=== PATIENT | female | born 1950 | race Caucasian/White ===

== ENCOUNTER 2017-08-31 10:26 | Observation (INO) | payer OTHER ==
[2017-08-31] VITALS (7 sets, daily range): BP systolic 146–184; BP diastolic 67–76; PULSE 46–57; RESP 16; TEMP 97.5–97.7; O2SAT 96–99
[2017-08-31] MEDS ORDERED: LOSA100T2 PO ×2 (12:16→16:27)
[2017-08-31] MEDS ORDERED: METF1000 PO (12:16)
[2017-08-31] MEDS ORDERED: GLIM2TAB PO (12:16)
[2017-08-31] MEDS ORDERED: FERR324T8 PO (12:16)
[2017-08-31] MEDS ORDERED: ATOR40TA16 PO (12:16)
[2017-08-31] MEDS ORDERED: FE FCAP2 (12:16)
[2017-08-31] MEDS ORDERED: VITA500012 PO (12:16)
[2017-08-31] MEDS ORDERED: MELO7.5T27 PO (12:16)
[2017-08-31] MEDS ORDERED: ACETAMINOPHEN 500 MG CPLT PO PRN (16:30)
[2017-08-31] MEDS ORDERED: NON-FORMULARY DRUG (Losartan-Hydrochlorothiazide 1 TAB) PO SCH (16:30)
[2017-08-31] MEDS ORDERED: cloNIDine HCL 0.1 MG TAB PO PRN (16:30)
[2017-08-31] MEDS ORDERED: ONDANSETRON ODT 4 MG TAB PO PRN (16:30)
[2017-08-31] MEDS ORDERED: ALPRAZolam 0.25 MG TAB PO PRN (16:30)
[2017-08-31] MEDS ORDERED: RESP: ALBUTEROL 2.5 MG/IPRATROPIUM 0.5 MG NEB (PRN) INH (16:30)
--- NOTE | 2017-08-31 16:35 | HHI.HP ---
HPI Primary Care Physician Non-Staff Chief Complaint Chest pain History of Present Illness This is a 67-year-old female that presents to ED in [place] to be evaluated for chest pain. Patient has history of hypertension, hyperlipidemia, diabetes. States that she was visiting her mother at a snf yesterday when she fell. She landed on her right knee. Otherwise nothing else was bothering her. Denied loss of consciousness. Cannot recall striking her head. Was not feeling dizzy. She really cannot state why she fell. Then later that evening at home approximately 1030, patient developed a discomfort in left chest. States it felt like a very cold sensation. It lasted a couple seconds and then resolved. There was no associated shortness of breath, nausea, or diaphoresis. She took her blood pressure medicine and then went to sleep. She woke back up and stated that her whole body aches. And then a little later she developed the same chest discomfort that she had the evening before also lasting a couple seconds. She decided to go to the hospital. Currently she complains of low back pain and right knee pain. CT scan of the C-spine and brain in [place] revealed nothing acute. X-ray of the right knee revealed nothing acute. We will get x-rays of her low back. Currently denies chest pain. Review of Systems General: Patient denies fevers, chills, and recent travel. HEENT: Patient denies headache, sore throat, difficulty swallowing. Cardiovascular: Has the chest discomfort as mentioned above. Denies sensation of heart beating rapidly or irregularly. No syncope. Denies diaphoresis. Respiratory: Denies shortness of breath or inspirational chest discomfort. Denies coughing wheezing or hemoptysis. GI: Patient denies nausea, vomiting, diarrhea, abdominal pain, bloody stools. Musculoskeletal: Complains of right knee pain and low back pain. States her neck was bothering her earlier but is not bothering her at this time. Denies calf pain or edema. Neurovascular: Patient denies numbness, tingling, weakness in extremities. Denies headache. Endocrine: Denies polyuria and polydipsia. Hematologic: Denies easy bruising. Skin: Denies rash or itching. Past Family Social History Allergies: Coded Allergies: No Known Allergies (Verified Allergy, Unknown, 08/31/17) Past Medical History Hypertension, hyperlipidemia, and diabetes. Denies known CAD but also states that she cannot recall ever having a stress test. Past Surgical History Noncontributory. Reported Medications Reported Meds & Active Scripts Active Losartan-Hydrochlorothiazide 100-25 Mg Tab 1 Tab PO DAILY@1600 Reported Ferrous Fumarate 324 Mg (106 Mg Iron) Tab 325 Mg PO DAILY Integra Plus (Multi-Vit/Iron-Vit C-K19-Uljig Acid) 191-210-0.01-1 mg Cap Metformin (Metformin HCl) 1,000 Mg Tab 1,000 Mg PO BIDPC Glimepiride 2 Mg Tab 2 Mg PO DAILY Take with breakfast or first main meal Atorvastatin (Atorvastatin Calcium) 40 Mg Tab 40 Mg PO HS Ergocalciferol 50,000 Unit Cap 50,000 Units PO Q7D Meloxicam 7.5 Mg Tab 7.5 Mg PO DAILY Active Ordered Medications Current Medications Medications (Trade) Dose Ordered Sig/Farooq Route Start Time Stop Time Status Last Admin (Tylenol) 500 mg Q4H PRN PO 08/31/17 16:30 UNV (Huguenot 7.5-325 Mg) 1 tab Q4H PRN PO 08/31/17 16:30 UNV (Protonix) 40 mg DAILY PO 08/31/17 16:30 UNV (Aspirin) 325 mg DAILY PO 09/01/17 09:00 UNV (Xanax) 0.25 mg Q8H PRN PO 08/31/17 16:30 UNV (Zofran Odt) 4 mg Q4H PRN PO 08/31/17 16:30 UNV (Duoneb Neb) 1 ampule Q4HR NEB PRN INH 08/31/17 16:30 UNV (Catapres) 0.1 mg Q4H PRN PO 08/31/17 16:30 UNV Family History States that her father had an FL at age 58. Social History Lifetime non-smoker. Denies alcohol or illicit drug use. Physical Exam Vital Signs Vital Signs Date Time Temp Pulse Resp B/P (MAP) Pulse Ox O2 Delivery O2 Flow Rate FiO2 08/31/17 15:41 97.5 57 16 170/74 (106) 98 Physical Exam GENERAL: This is a well-nourished, well-developed patient, in no apparent distress. Patient speaks in clear complete sentences. Patient is pleasant. HEENT: Head is atraumatic and normocephalic. Neck is supple without lymphadenopathy and trachea is midline. No JVD or carotid bruits. CARDIOVASCULAR: Regular rate and rhythm without murmurs, gallops, or rubs. RESPIRATORY: Clear to auscultation. Breath sounds equal bilaterally. No wheezes , rales, or rhonchi. Chest wall is tender. No use of accessory muscles. GASTROINTESTINAL: Abdomen is nontender, nondistended. Abdomen soft. No obvious pulsatile mass or bruit. No CVA tenderness. Strong femoral pulses bilaterally. Normal bowel sounds in all quadrants. MUSCULOSKELETAL: Patient is moving upper and lower extremities freely but there is discomfort with movement of her right knee. Generalized tenderness but no specific spot. No edema of the knee. No ecchymosis. No spinous process point tenderness in palpating cervical, thoracic, or lumbar spine. There is discomfort with flexion extension of the cervical spine and lumbar spine. No calf tenderness or edema, no Homans sign. Strong pulses in upper and lower extremities. NEUROLOGICAL: Patient is alert and oriented. Cranial nerves 2-12 are grossly intact. No focal deficits and speech is clear. SKIN: No rash and turgor is normal. Imaging CT C-spine read by radiologist is nothing acute. There are moderate degenerative changes. CT brain reveals nothing acute. X-ray of right knee reveals osteoarthritis. No acute findings. Chest x-ray reveals no acute findings. Course Initial EKG is a sinus rhythm without significant ST segment depressions or elevations. Caprini VTE Risk Assessment Caprini VTE Risk Assessment: Mod/High Risk (score >= 2) Caprini Risk Assessment Model Point Value = 1 Point Value = 2 Point Value = 3 Point Value = 5 Age 41-60 Minor surgery BMI > 25 kg/m2 Swollen legs Varicose veins or History of unexplained or recurrent spontaneous Oral contraceptives or hormone replacement Sepsis (< 1 month) Serious lung disease, including pneumonia (< 1 month) Abnormal pulmonary function Acute myocardial infarction Congestive heart failure (< 1 month) History of inflammatory bowel disease Medical patient at bed rest Age 61-74 Arthroscopic surgery Major open surgery (> 45 min) Laparoscopic surgery (> 45 min) Malignancy Confined to bed (> 72 hours) Immobilizing plaster cast Central venous access Age >= 75 History of VTE Family history of VTE Factor V Leiden Prothrombin [id number] Lupus anticoagulant Anticardiolipin antibodies Elevated serum homocysteine Heparin-induced thrombocytopenia Other congenital or acquired thrombophilia Stroke (< 1 month) Elective arthroplasty Hip, pelvis, or leg fracture Acute spinal cord injury (< 1 month) Prophylaxis Regimen Total Risk Factor Score Risk Level Prophylaxis Regimen 0-1 Low Early ambulation 2 Moderate Order ONE of the following: *Sequential Compression Device (SCD) *Heparin 5000 units SQ BID 3-4 Higher Order ONE of the following medications: *Heparin 5000 units SQ TID *Enoxaparin/Lovenox 40 mg SQ daily (WT < 150 kg, CrCl > 30 mL/min) *Enoxaparin/Lovenox 30 mg SQ daily (WT < 150 kg, CrCl > 10-29 mL/min) *Enoxaparin/Lovenox 30 mg SQ BID (WT < 150 kg, CrCl > 30 mL/min) AND/OR *Sequential Compression Device (SCD) 5 or more Highest Order ONE of the following medications: *Heparin 5000 units SQ TID (Preferred with Epidurals) *Enoxaparin/Lovenox 40 mg SQ daily (WT < 150 kg, CrCl > 30 mL/min) *Enoxaparin/Lovenox 30 mg SQ daily (WT < 150 kg, CrCl > 10-29 mL/min) *Enoxaparin/Lovenox 30 mg SQ BID (WT < 150 kg, CrCl > 30 mL/min) AND *Sequential Compression Device (SCD) Assessment and Plan Assessment and Plan * Chest pain: Patient's symptoms are atypical. She will continue to have serial cardiac enzymes and EKGs for ruling out purposes. She will be seen by Dr. Osborne of cardiology in the chest pain center. Likely have a Lexiscan in the morning and if nonischemic would be discharged home with instructions to follow-up with PCP and to return to ED for interval issues. * Hypertension: Continue medication. Have as needed Catapres. * Diabetes: Diabetic diet. Sliding scale insulin coverage while in chest pain center. Resume medication at discharge. * Hyperlipidemia: Continue medication. * Contusions: Ice and elevation. Motrin or Tylenol. * Low back pain: We will get x-ray of lumbar spine. Patient is stable at this time. She is agreeable to this plan. Davie Chaudhari August 31, 2017 16:35
[2017-08-31] MEDS: HYDROCHLOROTHIAZIDE 25 MG TAB PO SCH (17:00)
[2017-08-31] MEDS: PANTOPRAZOLE SOD 40 MG DELAYED RELEASE TAB PO SCH (17:01)
[2017-08-31] MEDS: LOSARTAN 50 MG TAB PO SCH (17:01)
[2017-08-31] MEDS: ACETAMINOPHEN/HYDROcodone 325 MG/7.5 MG TAB PO PRN ×2 (17:01→21:09)
--- NOTE | 2017-08-31 17:26 | RADRPT ---
EXAM DATE: 08/31/2017 5:04 PM EDT AGE/SEX: 67 years / Female INDICATIONS: Chronic low back pain. No trauma. CLINICAL DATA: This is the patient's initial encounter. Patient reports that signs and symptoms have been present for 2 days and indicates a pain score of 6/10. MEDICAL/SURGICAL HISTORY: Hypertension. None. COMPARISON: No prior [facility] exams available for comparison. FINDINGS: 3 views of the lumbar spine demonstrate no fracture or compression deformity. No anterolisthesis or r etrolisthesis is identified. There are endplate osteophytes at multiple levels with decreased disc he ight at T12-L1. There is mild facet hypertrophy at L4-L5. Pelvic bones and soft tissues demonstrate no acute finding. Cholecystectomy clips are present. CONCLUSION: No acute lumbar spine abnormality is identified. There is mild multilevel degenerative change with de generative disc disease at T12-L1 and facet arthrosis at L4-L5. Electronically signed by: Aime Pride MD 08/31/2017 5:25 PM EDT
[2017-08-31 18:09] LABS: TROPONIN I LESS THAN 0.02 NG/ML (0.02-0.05)
[2017-08-31] MEDS ORDERED: ATORVASTATIN 40 MG TAB PO SCH (21:00)
[2017-09-01] VITALS (7 sets, daily range): BP systolic 141–147; BP diastolic 65–73; PULSE 51–65; RESP 16–18; TEMP 96–97.9; O2SAT 97–98
--- NOTE | 2017-09-01 07:17 | EKG ---
Date Performed: 08/31/2017 Time Performed: 17:14:00 PTAGE: 67 years EKG: Sinus rhythm WITH FIRST DEGREE AV BLOCK ABNORMAL ECG Since PREVIOUS TRACING , no significant change noted DOCTOR: Binta Osborne Interpretating Date/Time 09/03/2017 07:42:37
[2017-09-01] MEDS: LOSARTAN 50 MG TAB PO SCH (08:03)
[2017-09-01] MEDS: PANTOPRAZOLE SOD 40 MG DELAYED RELEASE TAB PO SCH (08:04)
[2017-09-01] MEDS: HYDROCHLOROTHIAZIDE 25 MG TAB PO SCH (08:04)
[2017-09-01] MEDS ORDERED: ASPIRIN 325 MG TAB PO SCH (09:00)
[2017-09-01] MEDS ORDERED: REGADENOSON INJ 0.4 MG/5 ML SYR ONE (10:40)
--- NOTE | 2017-09-01 13:53 | RADRPT ---
EXAM DATE: 09/01/2017 12:28 PM EDT AGE/SEX: 67 years / Female INDICATIONS:Angina. . Left chest discomfort. CLINICAL DATA: This is the patient's initial encounter. Patient reports that signs and symptoms have been present for 1 day and indicates a pain score of 2/10. MEDICAL/SURGICAL HISTORY: Hypertension. Hypercholesterolemia. Diabetes mellitus type II. Hyst erectomy. Cholecystectomy. Gastric bypass. COMPARISON: No prior [facility] exams available for comparison. DOSE: 26.1 mCi Tc 99m Myoview at stress 8.6 mCi [id number] at rest 0.4 mg Lexiscan STRESS SYMPTOMS: Dizziness. EJECTION FRACTION: 66 % TECHNIQUE: The patient underwent pharmacologic stress with infusion of prescribed dose. Continuous ECG tracing was monitored during stress. Gated SPECT imaging was performed after stress and conventi onal SPECT imaging was performed at rest. The examination was performed on a SPECT /CT scanner, both attenuation and non-corrected datasets were reviewed. FINDINGS: Distribution: The maximum perfused segment at stress is in the septum and inferior wall. wall. Perfusion Study: There is minimal redistribution in the mid anterior wall extending to the apex inv olving a moderate-sized ventricular segment. There is normal wall motion across this segment. Gated Study: There are intact wall motion and wall thickening without hypokinetic or dyskinetic segm ents. The ejection fraction is calculated at 66%. RISK CATEGORY: Low (<1% Annual Motality Rate) CONCLUSION: 1. Minimal stress-induced redistribution on the moderate sized segment of the anterior myocardium. Electronically signed by: Danial Machuca MD 09/01/2017 1:52 PM EDT
[2017-09-01] MEDS ORDERED: DEXTROSE 50% IN WATER 50 ML VIAL(D50) IV PUSH PRN (14:00)
[2017-09-01] MEDS ORDERED: GLUCAGON 1 MG/ML VIAL OTHER PRN (14:00)
[2017-09-01] MEDS ORDERED: amLODIPine BESYLATE 5 MG TAB PO SCH (14:30)
[2017-09-01] MEDS ORDERED: INSULIN ASPART SUPPLEMENTAL SCALE SQ SCH (17:00)
--- NOTE | 2017-09-01 17:00 | HHI.DCPOC ---
Discharge Care Plan Diagnosis: (1) Chest pain (2) DM (diabetes mellitus) (3) Hypertension (4) Hyperlipidemia (5) Abnormal stress test Goals to Promote Your Health * To prevent worsening of your condition and complications * To maintain your health at the optimal level Directions to Meet Your Goals Take your medications as prescribed Follow your dietary instruction Follow activity as directed Keep your appointments as scheduled Take your immunizations and boosters as scheduled If your symptoms worsen call your PCP, if no PCP go to Urgent Care Center or Emergency Room Smoking is Dangerous to Your Health. Avoid second hand smoke Call the 24-hour hour crisis hotline for domestic abuse at Davie Chaudhari September 01, 2017 17:00
[2017-09-01] MEDS ORDERED: AMLO5TAB2 PO (17:23)
--- NOTE | 2017-09-01 17:41 | TR ---
Date Performed: 09/01/2017 Time Performed: 10:49:20 DOCTOR: Binta Osborne DRUG LIST: CLINICAL HISTORY: REASON FOR TEST: REASON FOR ENDING: OBSERVATION: CONCLUSION: Lexiscan stress test was performed under standard four minute protocol. Radionuclid e was injected one minute prior to ending the test. No electrocardiographic abormalities were present to suggest ischemia. Nuclear imaging and interpretation are pending. COMMENTS: no ischemia
== END 2017-09-01 19:25 | disposition home or self-care (01) ==
LOC: NEDDLT 10:26 → NEPFCDU 15:35
PROVIDERS: ADMIT Internal Medicine Interventional Cardiology; ATTEND Internal Medicine Interventional Cardiology
DX: R07.9 Chest pain, unspecified (principal); I10 Essential (primary) hypertension; E78.5 Hyperlipidemia, unspecified; E11.9 Type 2 diabetes mellitus without complications; W01.0XXA Fall on same level from slipping, tripping and stumbling without subsequent striking against object, initial encounter; M54.5 Low back pain; M25.561 Pain in right knee; Z79.899 Other long term (current) drug therapy; Z79.84 Long term (current) use of oral hypoglycemic drugs; Z82.49 Family history of ischemic heart disease and other diseases of the circulatory system; M17.11 Unilateral primary osteoarthritis, right knee; R94.39 Abnormal result of other cardiovascular function study; M25.78 Osteophyte, vertebrae; M51.35 Other intervertebral disc degeneration, thoracolumbar region; E78.00 Pure hypercholesterolemia, unspecified; I44.0 Atrioventricular block, first degree
CPT/HCPCS: 70450; 71045; 72100; 72125; 73564; 78452; 80053; 82550; 82948; 84484; 85025; 85610; 85730; 93005; 93017; 99285; A9502; G0378; J1815; J2785